=== PATIENT | male | born 1945 | race Caucasian/White ===

== ENCOUNTER 2021-05-01 08:00 | Outpatient (CLI) | payer MEDICARE, MEDICAID | END 2021-05-01 23:59 | disposition home or self-care (01) | LOC: LAB.S 08:00 | PROVIDERS: ATTEND Registered Nurse | DX: U07.1 COVID-19 (principal) ==

== ENCOUNTER 2023-11-08 11:16 | Outpatient (CLI) | payer MEDICARE, MEDICAID ==
--- NOTE | 2023-11-08 15:53 | Ultrasound Report ---
PROCEDURE: Duplex Ext Veins Left INDICATIONS: L CALF PAIN TECHNIQUE: Real-time imaging, as well as color and pulse Doppler interrogation, were performed of the lower extr emity deep veins from the inguinal ligament to the popliteal fossa. Attempted visualization of the ca lf veins was performed. COMPARISON: None. FINDINGS: The deep veins are normally compressible, and free of intraluminal thrombus. Color and pu lse Doppler demonstrate normal phasic intraluminal flow. There is normal augmentation response to di stal compression maneuver. Subcutaneous edema within the left lateral lower extremity at the site of injury. No abscess or hematoma. IMPRESSION: No deep venous thrombosis of the visualized lower extremity. Reviewed by: Kameron Hernandez MD on 11/08/2023 3:51 PM PDT Approved by: Kameron Heranndez MD on 11/08/2023 3:51 PM PDT Station ID: [id number]
== END 2023-11-08 11:17 | disposition home or self-care (01) ==
LOC: DI 11:16
PROVIDERS: ATTEND Registered Nurse
DX: M79.662 Pain in left lower leg (principal); R60.0 Localized edema